=== PATIENT | female | born 1995 | race African-American/Black ===

== ENCOUNTER 2018-11-29 06:08 | Emergency (ER) | payer SELFPAY ==
[2018-11-29 06:37] LABS: #Eosinphils 0.1 thou/uL (0.0-0.7); #Lymphocytes 3.6 thou/uL (1.20-3.40); #Monocytes 0.9 thou/uL (0.11-0.59); #Neutrophils 3.6 thou/uL (1.40-6.50); %Basophils 0.5 % (0.0-1.0); %Eosinophils 0.7 % (0.0-10.0); %Lymphocytes 43.8 % (21.0-51.0); %Monocytes 11.3 % (0.0-10.0); %Neutrophils 43.6 % (42.0-75.0); Hemoglobin 11.3 g/dL (12.0-16.0); Mean Corpuscular HGB CONC 34.7 g/dL (32.0-36.0); Mean Corpuscular Hemoglobin 30.4 pg (27.0-31.0); Mean Corpuscular Volume 87.5 fL (78.0-98.0); Mean Platelet Volume 4.9 fL (7.4-10.4); Platelet Count 357 thou/uL (130-400); RBC Distribution Width 11.8 % (11.5-14.5); Red Blood Cell (RBC) Count 3.71 mill/uL (4.20-5.40); White Blood Cell (WBC) Count 8.1 thou/uL (4.8-10.8)
[2018-11-29 06:38] LABS: Bilirubin Small (Negative); Blood, Urine Negative (Negative); Clarity Slightly Cloudy (Clear); Glucose, Urine (Dipstick) Negative (Negative); Leukocyte Negative (Negative); Nitrite Negative (Negative); Protein, Urine (Dipstick) 30 mg/dL (Neg-Trace)
[2018-11-29 06:46] LABS: RBC/HPF 0-3 HPF (0-3); Squamous Epithelial 0-3 HPF (0-3); WBC/HPF None Seen HPF (0-3)
[2018-11-29 06:47] LABS: Bacteria/HPF Rare-Few HPF (None Seen); Mucous/LPF 4+ LPF (<2+)
[2018-11-29 06:51] LABS: ALT (SGPT) 26 U/L (8-55); AST (SGOT) 19 U/L (5-34); Albumin 4.2 g/dL (3.5-5.0); Alkaline Phosphatase 55 U/L (40-150); Anion Gap 12 mmol/L (10-20); BUN (Urea Nitrogen) 13 mg/dL (7.0-18.7); Calc. Creatinine Clearance 0 mL/min (70-130); Calcium 9.3 mg/dL (7.8-10.44); Carbon Dioxide 23 mmol/L (22-29); Chloride 104 mmol/L (98-107); Estimated GFR-MDRD 88; Globulin 3.8 g/dL (2.4-3.5); Glucose 79 mg/dL (70-105); Potassium 3.2 mmol/L (3.5-5.1); Sodium 136 mmol/L (136-145)
[2018-11-29 06:53] LABS: Bilirubin, Total 0.4 mg/dL (0.2-1.2)
--- NOTE | 2018-11-29 08:09 | ULT ---
PELVIC ULTRASOUND: INDICATIONS: Pelvic pain. Positive home test. TECHNIQUE: Transabdominal and endovaginal ultrasound of the pelvis performed. FINDINGS: The endometrium is echogenic and thickened. Tiny, circumscribed fluid structures in the endometrial cavity may represent a very small gestational sac. Measurement would indicate a gestational age of 5 weeks 0 days. No evidence of pole or yolk sac. The maternal ovaries are identified and appear unremarkable. Color Doppler with spectral analysis de monstrates blood flow to both ovaries. IMPRESSION: 1. Thickened echogenic endometrium. A tiny fluid-filled structure in the endometrial cavity may rep resent an early gestational sac, which would indicate a gestational age of 5 week 0 days. 2. Ectopic with pseudo gestational sac not excluded. Continued close followup recommended . POS: TERRIE
== END 2018-11-29 08:13 | disposition home or self-care (01) ==
LOC: SCSER 06:08
DX: O20.0 Threatened abortion (principal); O99.011 Anemia complicating pregnancy, first trimester; O99.89 Other specified diseases and conditions complicating pregnancy, childbirth and the puerperium; R10.30 Lower abdominal pain, unspecified; Z3A.01 Less than 8 weeks gestation of pregnancy
CPT/HCPCS: 36415; 76856; 80053; 81003; 81015; 84702; 85025

== ENCOUNTER 2019-01-12 21:57 | Emergency (ER) | payer OTHER, SELFPAY ==
[2019-01-12 22:29] LABS: #Eosinphils 0.1 thou/uL (0.0-0.7); #Neutrophils 6.4 thou/uL (1.40-6.50); %Basophils 0.4 % (0.0-1.0); %Eosinophils 0.7 % (0.0-10.0); %Lymphocytes 28.4 % (21.0-51.0); %Monocytes 9.8 % (0.0-10.0); %Neutrophils 60.6 % (42.0-75.0); Hemoglobin 11.6 g/dL (12.0-16.0); Mean Corpuscular HGB CONC 35.1 g/dL (32.0-36.0); Mean Corpuscular Hemoglobin 31.2 pg (27.0-31.0); Mean Corpuscular Volume 88.8 fL (78.0-98.0); Mean Platelet Volume 6.2 fL (7.4-10.4); Platelet Count 381 thou/uL (130-400); RBC Distribution Width 11.7 % (11.5-14.5); Red Blood Cell (RBC) Count 3.73 mill/uL (4.20-5.40); White Blood Cell (WBC) Count 10.5 thou/uL (4.8-10.8)
[2019-01-12 22:44] LABS: BHCG - Serum POSITIVE (NEGATIVE); Pregs Control Background? CLEAR/WHITE (CLR/WHITE); Pregs Control Bar Appear? YES (CONTROL BAR)
[2019-01-12 22:49] LABS: ALT (SGPT) 27 U/L (8-55); AST (SGOT) 19 U/L (5-34); Albumin 3.8 g/dL (3.5-5.0); Alkaline Phosphatase 66 U/L (40-110); Anion Gap 13 mmol/L (10-20); BUN (Urea Nitrogen) 8 mg/dL (7.0-18.7); Bilirubin, Total 0.3 mg/dL (0.2-1.2); Calc. Creatinine Clearance 0 mL/min (70-130); Calcium 9.8 mg/dL (7.8-10.44); Carbon Dioxide 21 mmol/L (22-29); Chloride 104 mmol/L (98-107); Estimated GFR-MDRD Greater than 90; Globulin 3.9 g/dL (2.4-3.5); Glucose 95 mg/dL (70-105); Potassium 3.5 mmol/L (3.5-5.1); Protein, Total 7.7 g/dL (6.0-8.3); Sodium 134 mmol/L (136-145)
[2019-01-12 23:17] LABS: Bilirubin Small (Negative); Blood, Urine Trace (Negative); Glucose, Urine (Dipstick) Negative (Negative); Leukocyte Moderate (Negative); Nitrite Negative (Negative); Protein, Urine (Dipstick) 30 mg/dL (Neg-Trace)
[2019-01-12 23:18] LABS: Clarity Turbid (Clear)
[2019-01-12 23:23] LABS: Bacteria/HPF 2+ HPF (None Seen); Squamous Epithelial 0-3 HPF (0-3); WBC/HPF 21-50 HPF (0-3)
--- NOTE | 2019-01-12 23:56 | ULT ---
US Pelvic transabdominal HISTORY: Pelvic pain. COMPARISON: None. FINDINGS: Real-time imaging of the pelvis was obtained transabdominally. This shows a single viable i ntrauterine . [place]-rump length measurements are 5.2 cm corresponding to 11 weeks 6 days. The heart rate is 165 bpm. No subchorionic bleed. The right and left adnexa are normal in appearance. Doppler evaluation with spectral analysis: Normal flow shown to the ovaries. IMPRESSION: Single viable intrauterine with crown to rump length measurements corresponding to 11 weeks 6 days with an estimated date of delivery of 07/28/2019
[2019-01-13] MEDS ORDERED: Azithromycin 250 MG TAB ONE (01:06)
[2019-01-13] MEDS ORDERED: Lidocaine 1% PF 5 ML VIAL ONE (01:06)
[2019-01-13] MEDS ORDERED: cefTRIAXone\\ROCEPHIN 1 GM VIAL ONE (01:06)
== END 2019-01-13 01:33 | disposition home or self-care (01) ==
LOC: ERS 21:57
DX: O23.41 Unspecified infection of urinary tract in pregnancy, first trimester (principal); O99.341 Other mental disorders complicating pregnancy, first trimester; F41.9 Anxiety disorder, unspecified; Z3A.12 12 weeks gestation of pregnancy
CPT/HCPCS: 36415; 76856; 80053; 81003; 81015; 84702; 84703; 85025; 86900; 86901; 87086; 87480; 87491; 87510; 87591; 87660; 96372; J0696; J2001

== ENCOUNTER 2019-04-26 19:55 | Day surgery (SDC) | payer OTHER ==
[2019-04-26 20:27] VITALS: BMI 28.3
[2019-04-26] MEDS ORDERED: hydrALAZINE 20 MG/ML VIAL SLOW IVP PRN (20:48)
[2019-04-26 22:21] LABS: #Basophils 0.1 thou/uL (0.0-0.2); #Eosinphils 0.1 thou/uL (0.0-0.7); #Lymphocytes 2.7 thou/uL (1.20-3.40); #Monocytes 0.8 thou/uL (0.11-0.59); #Neutrophils 4.8 thou/uL (1.40-6.50); %Basophils 0.6 % (0.0-1.0); %Eosinophils 1.3 % (0.0-10.0); %Lymphocytes 31.5 % (21.0-51.0); %Monocytes 9.5 % (0.0-10.0); %Neutrophils 57.1 % (42.0-75.0); Hemoglobin 11.5 g/dL (12.0-16.0); Mean Corpuscular HGB CONC 33.5 g/dL (32.0-36.0); Mean Corpuscular Hemoglobin 30.5 pg (27.0-31.0); Mean Platelet Volume 6.4 fL (7.4-10.4); Platelet Count 326 thou/uL (130-400); RBC Distribution Width 12.4 % (11.5-14.5); Red Blood Cell (RBC) Count 3.79 mill/uL (4.20-5.40); White Blood Cell (WBC) Count 8.5 thou/uL (4.8-10.8)
--- NOTE | 2019-04-26 22:53 | ULT ---
OB ULTRASOUND: 04/26/19 HISTORY: 24 week gestation. Patient is experiencing contractions. FINDINGS: There is a single intrauterine gestation in cephalic presentation. Cardiac Doppler demonstrates feta l heart tones with a heart rate of 157 beats per minute. The placenta is located posteriorly. E dge of the placenta in relation to the cervical os is not well appreciated on the provided images. Ho wever, no definite findings to suggest placenta previa are seen. There is a normal amount of amniotic fluid with an amniotic fluid index of 10.4 cm. The cervix measures 3.2 cm in length based on transab dominal imaging. measurements: Biparietal diameter 6.34 cm 25 weeks, 5 days Head circumference 24.37 cm 26 weeks, 3 days Abdominal circumference 21.1 cm 25 weeks, 4 days Femur length 4.96 cm 26 weeks, 5 days The gestational age by ultrasound is 26 weeks and 1 day with an JESSICA on 08/01/2019. Gestational age by the LMP is 26 weeks and 5 days. He estimated weight by ultrasound is 831 grams (1 lb. 15 oz). This represents the 17th percent ile for weight. anatomical structures were not evaluated on this exam. IMPRESSION: 1. Placenta is located posteriorly. The exact location of the edge of the placenta in relation t o the cervical os is not well delineated on the provided sonographic images. 2. Single intrauterine gestation in cephalic presentation with heart tones documented. 3. Normal amount of amniotic fluid with an amniotic fluid index measuring 10.4 cm. 4. Gestational age by ultrasound is 26 weeks and 1 day with an JESSICA on 08/01/2019. 5. Estimated weight is 891 grams (1 lb. 15 oz). POS: TERRIE
[2019-04-26 22:55] LABS: Bacteria/HPF None Seen HPF (None Seen); Bilirubin Negative (Negative); Blood, Urine Negative (Negative); Clarity Turbid (Clear); Glucose, Urine (Dipstick) Normal (Negative); Leukocyte Negative Leu/uL (Negative); Mucous/LPF Rare LPF (<2+); Nitrite Negative (Negative); Protein, Urine (Dipstick) Negative (Neg-Trace); RBC/HPF 0-3 HPF (0-3); Squamous Epithelial 0-3 HPF (0-3); Urobilinogen Normal mg/dL (Less than 2); WBC/HPF 0-3 HPF (0-3)
[2019-04-26 22:56] LABS: Urine Culture Reflex No No
--- NOTE | 2019-04-26 23:58 | PRG ---
DATE OF SERVICE: 04/26/2019 TIME OF SERVICE: 2300 hours. PRESENTING COMPLAINT: Vaginal spotting earlier in day with cramping at 26 weeks' gestation. HISTORY OF PRESENT ILLNESS: Ms. Mcclelland is a G2, P1 with EDC of 06/13. She reports that she had gonorrhea in March. She was treated for this. She reports that she had some spotting earlier today. No sexual activities and occasional cramps. She denies leakage of fluid. [employer] HISTORY: Term in the past, uncomplicated except for positive GC. 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 PAST MEDICAL HISTORY: None. PAST SURGICAL HISTORY: Denies. ALLERGIES: DENIES. MEDICATIONS: vitamins. SOCIAL HISTORY: Denies tobacco, alcohol, or drug use. FAMILY HISTORY: Noncontributory. REVIEW OF SYSTEMS: Noncontributory. PHYSICAL EXAMINATION: GENERAL: Black female in no acute distress. VITAL SIGNS: Temperature 98.5, respirations 18, pulse 85, and blood pressure 118/72. HEENT: Within normal limits. LUNGS: Clear to auscultation bilaterally. HEART: Regular rate and rhythm. ABDOMEN: Soft and nontender without rebound or guarding. No palpable contractions noted. FHTs 150s. Vulva without lesions. Vagina, discharge. Speculum exam reveals the cervix is closed, long, and high. EXTREMITIES: No clubbing, cyanosis, or edema. LABORATORY STUDIES: Ultrasound was performed, which revealed a posterior placenta, size equal to dates baby, cephalic presentation. Cervical length greater than 3 cm. No funneling. No other abnormalities noted. Fem cath UA was performed, which revealed turbid urine, but was otherwise unremarkable without evidence of ketones, leukocyte esterase, or infection. IMPRESSION: Discomforts of . No evidence of acute urinary tract infection or labor. PLAN: Discharge home. Reassurance. Keep scheduled followup with Ricarda Hampton. Job ID: [id number]
[2019-04-27] MEDS ORDERED: FLU VACC QS2019-20(6MOS UP)/PF 60 MCG/0.5 ML SYRINGE IM ONE (21:00)
== END 2019-04-26 23:20 | disposition home or self-care (01) ==
LOC: L&D/OP 19:55
PROVIDERS: ATTEND Advanced Practice Midwife
DX: O26.852 Spotting complicating pregnancy, second trimester (principal); O99.820 Streptococcus B carrier state complicating pregnancy; Z3A.26 26 weeks gestation of pregnancy
CPT/HCPCS: 36415; 76805; 81001; 85025

== ENCOUNTER 2019-06-11 06:34 | Day surgery (SDC) | payer OTHER ==
[2019-06-11 07:09] VITALS: BP 112/62; TEMP 98.6; BMI 30.9
[2019-06-11] MEDS ORDERED: hydrALAZINE 20 MG/ML VIAL SLOW IVP PRN (07:28)
--- NOTE | 2019-06-11 07:32 | PDOC.LDHP ---
Labor and Delivery H&P Chief complaint: other (LUQ pain x1) HPI: 23 yo at 33 weeks 2 days with left upper quadrant pain now better. No CTX, no VB, no LOF, good FM, no recent trauma. Review of Systems: complete ROS performed and negative as per HPI Current gestational age (weeks): 33 (2 days) Dating criteria: last menstrual period Grav: 2 Para: 1 OB History Details: Current complications: none Abnormal US findings: No Past Medical History: HX parior panic attacks resolved without med Current medications: pre-amos vitamins Previous surgical history: none Allergies/Adverse Reactions: Allergies Allergy/AdvReac Type Severity Reaction Status Date / Time No Known Allergies Allergy Verified 06/11/19 07:09 - Physical Exam Vital signs reviewed and normal: yes (112/62) General: NAD Heart: RRR Lungs: CTAB Abdomen: gravid FHT: category 1 [place] contractions every: none - Assessment 33 weeks with likely discomforts of . Do not suspect PTL so sx not checked. Check CMP to be conservative - Plan Plan: observation in L&D, other (Check CMP to be conservative)
[2019-06-11 08:10] LABS: ALT (SGPT) 37 U/L (8-55); AST (SGOT) 22 U/L (5-34); Albumin 3.5 g/dL (3.5-5.0); Alkaline Phosphatase 118 U/L (40-110); Anion Gap 12 mmol/L (10-20); BUN (Urea Nitrogen) 7 mg/dL (7.0-18.7); Bilirubin, Total 0.4 mg/dL (0.2-1.2); Calc. Creatinine Clearance 200 mL/min (70-130); Calcium 9.5 mg/dL (7.8-10.44); Carbon Dioxide 20 mmol/L (22-29); Chloride 106 mmol/L (98-107); Estimated GFR-MDRD Greater than 90; Globulin 3.7 g/dL (2.4-3.5); Glucose 94 mg/dL (70-105); Potassium 3.4 mmol/L (3.5-5.1); Protein, Total 7.2 g/dL (6.0-8.3); Sodium 135 mmol/L (136-145)
== END 2019-06-11 08:25 | disposition home or self-care (01) ==
LOC: L&D/OP 06:34
PROVIDERS: ATTEND Obstetrics & Gynecology
DX: O99.89 Other specified diseases and conditions complicating pregnancy, childbirth and the puerperium (principal); R10.12 Left upper quadrant pain; Z3A.33 33 weeks gestation of pregnancy
CPT/HCPCS: 36415; 80053; 99282

== ENCOUNTER 2019-08-02 05:30 | Inpatient (IN) | payer OTHER ==
[2019-08-02 07:16] VITALS: BMI 32.4
[2019-08-02] MEDS: Lactated Ringer's 1,000 ML IV SCH ×3 (07:20→21:33)
[2019-08-02] MEDS ORDERED: NS w/ Oxytocin 10 units 500 ML ONE (07:20)
[2019-08-02] MEDS ORDERED: HYDROcodone/Acetaminophen 5/325 mg Tablet PO PRN ×3 (08:14→19:47)
[2019-08-02] MEDS ORDERED: Ondansetron PF 4 MG/2 ML Vial IVP PRN ×3 (08:14→16:26)
[2019-08-02] MEDS ORDERED: Butorphanol Tartrate 1 MG/ML VIAL SLOW IVP PRN (08:14)
[2019-08-02] MEDS ORDERED: NS / Oxytocin 40 units/1000ml 1,000 ML IV PRN (08:14)
[2019-08-02] MEDS ORDERED: Methylergonovine 0.2 MG/ML VIAL IM PRN ×2 (08:14→19:47)
[2019-08-02] MEDS ORDERED: Promethazine HCl 25 MG/ML VIAL IM PRN ×3 (08:14→16:26)
[2019-08-02] MEDS ORDERED: Misoprostol 200 MCG TAB PR PRN ×2 (08:14→19:47)
[2019-08-02] MEDS ORDERED: Lidocaine 1% (PF) 30 ML VIAL SC PRN (08:14)
[2019-08-02] MEDS ORDERED: hydrALAZINE 20 MG/ML VIAL SLOW IVP PRN ×2 (08:14→19:47)
[2019-08-02] MEDS ORDERED: Ibuprofen 800 MG TAB PO PRN (08:14)
[2019-08-02 08:49] LABS: Hemoglobin 13.2 g/dL (12.0-16.0); Mean Corpuscular HGB CONC 31.7 g/dL (32.0-36.0); Mean Corpuscular Hemoglobin 28.9 pg (27.0-31.0); Platelet Count 359 thou/uL (130-400); RBC Distribution Width 12.6 % (11.5-14.5); Red Blood Cell (RBC) Count 4.59 mill/uL (4.20-5.40); White Blood Cell (WBC) Count 9.2 thou/uL (4.8-10.8)
[2019-08-02] MEDS ORDERED: Bupivacaine/Epinephrine 0.25% 30 ML VIAL ONE (08:52)
[2019-08-02] MEDS ORDERED: Fentanyl 4 mcg/Bup 0.1% Cadd 100 ML ONE (09:12)
[2019-08-02 09:16] LABS: HBSAg Index 0.17 S/CO (0-0.99); Hep B Surf Ag Non-Reactive S/CO (NonReactive); Syphilis Antibody Nonreactive (Nonreactive); Syphilis Antibody Index 0.09 S/CO (<1.00 Non-Reactive)
[2019-08-02] MEDS ORDERED: EPHEDRINE 25 MG/5 ML SYRINGE SLOW IVP PRN (10:11)
[2019-08-02] MEDS ORDERED: Naloxone HCl 0.4 mg/ml Vial IVP PRN ×4 (10:11→16:26)
[2019-08-02] MEDS ORDERED: Acetaminophen 325 MG TAB PO PRN (10:11)
[2019-08-02] MEDS ORDERED: Lactated Ringer's 500 ML IV PRN (10:11)
[2019-08-02] MEDS ORDERED: diphenhydrAMINE 50 MG/ML VIAL IVP PRN ×2 (10:11→16:26)
[2019-08-02] MEDS ORDERED: Fentanyl 4 mcg/Bupivacaine 0.1% Cassette 100 ML EPIDURAL SCH (10:15)
[2019-08-02] MEDS ORDERED: Communication Order-Pharmacy FS SCH ×2 (10:15→16:30)
--- NOTE | 2019-08-02 13:19 | PDOC.LDHP ---
Labor and Delivery H&P Chief complaint: scheduled induction HPI: Patient is post dates by 5 days and desires an elective induction Current gestational age (weeks): 40 (5 days) Due date: 07/28/19 Dating criteria: first trimester ultrasound (at [id number]) Grav: 2 Para: 1 OB History Details: in 2014. Uncomplicated at 39 weeks. Current complications: other Current medications: pre-amos vitamins Allergies/Adverse Reactions: Allergies Allergy/AdvReac Type Severity Reaction Status Date / Time No Known Allergies Allergy Verified 08/02/19 07:13 - Physical Exam Vital signs reviewed and normal: yes General: resting Lungs: nonlabored breathing Abdomen: gravid FHT: category 2 (minimal variability. One prolonged decel on admission.) - Vaginal Exam cm dilated: 4 Effacement: 50% Station: -3 - OB Labs Blood type: O RH: positive Antibody Screen: negative HIV: negative RPR: negative HEPSAg: negative 1 hour GCT: negative GBS: negative Urine drug screen: negative Rubella: immune - Assessment L&D Assessment: elective induction at term - Plan Plan: admit to L&D, informed consent obtained -: pitocin for induction
[2019-08-02] MEDS ORDERED: Azithromycin 500 MG VIAL ONE (15:38)
[2019-08-02] MEDS ORDERED: Lidocaine 2% 10 ML INJ ONE (15:40)
[2019-08-02] MEDS ORDERED: EPINEPHrine 1 MG/ML AMP ONE (15:40)
[2019-08-02] MEDS ORDERED: CEFAZOLIN 2 GM in Premix Bag 1 BAG IVPB SCH (15:45)
[2019-08-02] MEDS ORDERED: Bicitra 30 ML UDCUP PO SCH (15:45)
[2019-08-02] MEDS ORDERED: Azithromycin 500 MG in Sodium Chloride 0.9% 250 ML 250 ML IVPB SCH (15:45)
[2019-08-02] MEDS ORDERED: MORPHINE 5 MG/10 ML PF VIAL ONE (16:03)
[2019-08-02] MEDS ORDERED: Oxytocin 10 UNITS/ML VIAL ONE ×2 (16:03→16:23)
[2019-08-02] MEDS ORDERED: Ondansetron PF 4 MG/2 ML Vial ONE (16:03)
[2019-08-02] MEDS ORDERED: Fentanyl 100 MCG/2 ML VIAL ONE (16:03)
--- NOTE | 2019-08-02 16:21 | PDOC.OPDEL ---
OB Operative/Delivery Note Delivery Dr/Surgeon: Adam Assist: Light Pre-Delivery Diagnosis: non-reassuring tracing Procedure/Post Delivery Dx: primary low transverse CS Weeks gestation: 40 Anesthesia: epidural - Findings A Sex: female - 1 min: 8 - 5 min: 9 - Additional Findings/Plan Placenta delivered: spontaneous findings: low transverse hysterotomy without extension, normal uterus, normal tubes, normal ovaries Estimated blood loss: qbl pending Post delivery plan: routine recovery
[2019-08-02] MEDS ORDERED: Promethazine HCl 25 MG SUPP PR PRN (16:26)
[2019-08-02] MEDS ORDERED: Ondansetron HCl/PF 4 MG/2 ML Vial IVP PRN (16:26)
[2019-08-02] MEDS ORDERED: Naloxone HCl 0.4 mg/ml Vial IV PRN (16:26)
[2019-08-02 16:30] LABS: Actual Bicarbonate (HCO3v) 23 mEq/L (22-28); Base Excess -3.9 mEq/L (-2.0 to +3.0); pH (Cord, venous) 7.31 (7.32-7.43)
[2019-08-02] MEDS: Acetaminophen 650 MG Suppository PR SCH (18:23)
[2019-08-02] MEDS ORDERED: Ketorolac Tromethamine 30 MG/ML VIAL ONE (18:24)
[2019-08-02] MEDS: Ketorolac Tromethamine 30 MG/ML VIAL IVP PRN (18:25)
[2019-08-02] MEDS ORDERED: Lanolin Ointment 7 GM TUBE TOP PRN (19:47)
[2019-08-02] MEDS ORDERED: Simethicone Chewable 80 MG TAB PO PRN (19:47)
[2019-08-02] MEDS ORDERED: NS / Oxytocin 40 units/1000ml 1,000 ML IV SCH (19:47)
--- NOTE | 2019-08-02 20:21 | OP ---
DATE OF PROCEDURE: 08/02/2019 PREOPERATIVE DIAGNOSIS: G2, P1, at 40 weeks and 5 days with non-reassuring heart tracing, remote from delivery. POSTOPERATIVE DIAGNOSIS: G2, P1, at 40 weeks and 5 days with non-reassuring heart tracing, remote from delivery. PROCEDURE PERFORMED: Primary low-transverse section. ASSIST: Ricarda Hampton, JAYNA, DIRECTOR OF APPLICATION DEVELOPMENT. ANESTHESIA: Epidural. ANESTHESIOLOGIST: Sandrine Ram MD. COMPLICATIONS: None. QUANTITATIVE BLOOD LOSS: Pending at the time of dictation. OPERATIVE FINDINGS: 1. Vigorous female , Apgars 8 and 9. Weight pending at the time of dictation to nursery. 2. Normal-appearing placenta with 3-vessel cord. 3. Low-transverse hysterotomy without extension. 4. Fundus firm after delivery of the placenta. 5. Surgical site hemostatic. INDICATIONS FOR DELIVERY: Ms. Fausto Mcclelland is a G2, P1-0-0-1, who was undergoing induction of labor for prolonged at 40 weeks and 5 days with intolerance to labor demonstrated by recurrent late decelerations and minimal variability. I was called by Ricarda Hampton who was managing the patient's labor course for evaluation and for section. The patient was informed of the indications for delivery and consented to a section. DESCRIPTION OF PROCEDURE: The patient was taken back to the OR with IV fluids running. Once she was in the OR, she was placed in dorsal supine position with a Wise catheter and epidural catheter that was previously placed. The patient was placed in a dorsal lithotomy with a left lateral tilt. The abdomen was prepped and draped in normal fashion for section and the surgeons were gowned and gloved. The preop antibiotics included azithromycin and Ancef 2 g. The patient was prepped and draped in normal fashion for section and the surgeons were gowned and gloved. Anesthesia was tested and found to be adequate. A Pfannenstiel skin incision was made with a scalpel. Skin incision was carried down through the subcutaneous tissue to the fascia. Once the fascia was reached, it was incised in the midline and extended superolaterally using curved Frazier scissors. Kristen clamps were placed at the superior border of the fascia, which was sharply and bluntly dissected off the rectus abdominis muscles in a cephalad direction. In similar fashion, they were placed at the inferior border of the fascia, which was dissected down towards the level of the pubic symphysis. The rectus muscles and peritoneum were bluntly entered and stretched laterally. An Santos O retractor was placed into the peritoneal cavity for retraction, visualization, and protection of the wound. A low-transverse hysterotomy was made with a scalpel. The uterus was bluntly entered and stretched using a Bunn maneuver. The infant was delivered vertex through the incision followed by the shoulders and body. The nose and mouth were suctioned. The cord was doubly clamped and cut. The infant was handed off to special care nurses in attendance. Cord blood and cord segment for cord gas were collected. The placenta was delivered. The uterus was massaged to firm and cleared of clot and debris with a clean dry sponge. The hysterotomy was inspected and no extension was noted. Hysterotomy was closed in a running locked fashion with Monocryl suture. After the hysterotomy was closed and noted to be hemostatic, it was copiously irrigated and suctioned dry. The hysterotomy was again inspected and no areas of bleeding were noted. The Santos O retractor was removed from the abdominal cavity. The rectus muscles and fascia were inspected and no bleeding was noted. The rectus fascia was reapproximated in a running fashion with PDS suture from corner to corner. After the rectus fascia was reapproximated, the subcutaneous layer was irrigated and dried. Any small areas of bleeding were controlled with Bovie cauterization. Plain gut suture was used to reapproximate the subcutaneous layer and 4-0 Monocryl was used to close the skin with a subcuticular closure. Dermabond dressing was used to protect the incision, and a sterile dressing was placed at the end of the procedure. The patient tolerated the procedure well and there were no complications. Job ID: [id number]
[2019-08-02] MEDS: Ferrous Sulfate 325 MG TAB PO SCH (21:28)
[2019-08-03] MEDS: Acetaminophen 650 MG Suppository PR SCH ×2 (01:55→06:35)
[2019-08-03 06:39] LABS: #Lymphocytes 1.8 thou/uL (1.20-3.40); #Monocytes 1.2 thou/uL (0.11-0.59); #Neutrophils 14.1 thou/uL (1.40-6.50); %Basophils 0.1 % (0.0-1.0); %Eosinophils 0.2 % (0.0-10.0); %Lymphocytes 10.7 % (21.0-51.0); %Monocytes 7.1 % (0.0-10.0); Hemoglobin 11.3 g/dL (12.0-16.0); Mean Corpuscular HGB CONC 34.2 g/dL (32.0-36.0); Mean Corpuscular Hemoglobin 31.1 pg (27.0-31.0); Mean Platelet Volume 6.7 fL (7.4-10.4); Platelet Count 284 thou/uL (130-400); RBC Distribution Width 12.2 % (11.5-14.5); Red Blood Cell (RBC) Count 3.62 mill/uL (4.20-5.40); White Blood Cell (WBC) Count 17.2 thou/uL (4.8-10.8)
[2019-08-03] MEDS ORDERED: Sodium Chloride 0.9% 10 ML ONE ×2 (06:48→21:55)
[2019-08-03] MEDS: Ketorolac Tromethamine 30 MG/ML VIAL IVP PRN (06:49)
[2019-08-03] MEDS ORDERED: Adacel (T-DAP) 0.5 ML SYRINGE IM ONE (09:00)
[2019-08-03] MEDS: Ferrous Sulfate 325 MG TAB PO SCH ×2 (09:02→22:07)
[2019-08-03] MEDS: Prenatal Vitamin 1 TAB PO SCH (09:03)
[2019-08-03] MEDS: HYDROcodone/Acetaminophen 5/325 mg Tablet PO PRN ×2 (13:00→19:37)
[2019-08-03] MEDS: Ibuprofen 800 MG TAB PO SCH ×2 (13:01→22:06)
--- NOTE | 2019-08-03 13:34 | PDOC.PP ---
Post Progress Note Post Day #: 1 Subjective: Patine doing well. her stomach hurts. Has not been up out of bed. PO intake tolerated: yes Flatus: yes Ambulation: yes Vital Signs (12 hours) Temp Pulse Resp BP Pulse Ox 08/03/19 11:45 98.4 F 94 20 105/62 08/03/19 07:46 98.4 F 100 20 104/57 L 95 08/03/19 06:33 98.3 F 08/03/19 04:55 99.0 F 108 H 20 113/61 96 Weight Weight 183 lb - Physical Examination General: NAD Respiratory: non-labored breathing Abdominal: lochia, no distention Skin: CS incision dry & intact Neurological: no gross focal deficits Psychiatric: A&Ox3, normal affect Result Diagrams: 08/03/19 06:22 Additional Labs: Post Labs Blood Type O POSITIVE 08/02/19 08:25 Hep Bs Antigen Non-Reactive S/CO (NonReactive) 08/02/19 08:25 (1) S/P primary low transverse Code(s): Z98.891 - HISTORY OF UTERINE SCAR FROM PREVIOUS SURGERY Status: Acute - Assessment/Plan A: G2 now P2 /sp PCS for non-reassuring FHTs. with NML ppd #1 exam. P: routine care possible discharge home tomorrow
[2019-08-04] MEDS: HYDROcodone/Acetaminophen 5/325 mg Tablet PO PRN (03:40)
[2019-08-04] MEDS: Ibuprofen 800 MG TAB PO SCH ×2 (05:28→13:41)
[2019-08-04] MEDS: Ferrous Sulfate 325 MG TAB PO SCH (07:02)
--- NOTE | 2019-08-04 07:36 | PDOC.PP ---
Post Progress Note Post Day #: 2 Subjective: Doing well this morning, would like to go home. PO intake tolerated: yes Flatus: yes Ambulation: yes Vital Signs (12 hours) Temp Pulse Resp BP Pulse Ox 08/04/19 04:05 97.6 F 80 18 107/58 L 97 08/04/19 00:05 97.8 F 80 18 109/54 L 98 Weight Weight 183 lb - Physical Examination General: NAD Respiratory: non-labored breathing Abdominal: lochia (normal), no distention, appropriately TTP Fundus firm & at: umbilicus Skin: CS incision dry & intact, no rash Neurological: no gross focal deficits Psychiatric: A&Ox3, normal affect Result Diagrams: 08/03/19 06:22 Additional Labs: Post Labs Blood Type O POSITIVE 08/02/19 08:25 Hep Bs Antigen Non-Reactive S/CO (NonReactive) 08/02/19 08:25 (1) S/P primary low transverse Code(s): Z98.891 - HISTORY OF UTERINE SCAR FROM PREVIOUS SURGERY Status: Acute - Assessment/Plan D/c home later today. Meds called out by Balbina Hampton.
[2019-08-04] MEDS: Prenatal Vitamin 1 TAB PO SCH (08:40)
[2019-08-04 08:43] VITALS: BP 110/59; TEMP 98.4
== END 2019-08-04 14:33 | disposition home or self-care (01) | DRG 788 ==
LOC: L&D 06:04 → 3SE 19:38
PROVIDERS: ADMIT Obstetrics & Gynecology; ATTEND Obstetrics & Gynecology
PROC: 10D00Z1 Extraction of Products of Conception, Low, Open Approach (ICD-10-PCS; principal; 2019-08-02)
DX: O76 Abnormality in fetal heart rate and rhythm complicating labor and delivery (principal); O48.0 Post-term pregnancy; Z3A.40 40 weeks gestation of pregnancy; Z37.0 Single live birth
CPT/HCPCS: 36415; 51702; 82805; 85025; 85027; 86780; 86850; 86900; 86901; 87340; J0171; J0456; J0690; J1200; J1885; J2001; J2274; J2405; J2590; J3010

== ENCOUNTER 2019-10-09 16:22 | Emergency (ER) | payer OTHER ==
[2019-10-10 14:09] LABS: SARS-CoV-2 MS2 Positive; SARS-CoV-2 N Gene Negative; SARS-CoV-2 S Gene Negative; SARS-CoV-2 orf1ab Negative
== END 2019-10-09 16:50 | disposition home or self-care (01) ==
LOC: ERS 16:22
DX: R50.9 Fever, unspecified (principal); R51 Headache; M79.10 Myalgia, unspecified site; Z20.828 Contact with and (suspected) exposure to other viral communicable diseases; F41.9 Anxiety disorder, unspecified
CPT/HCPCS: 87635; 99283; U0003

== ENCOUNTER 2019-12-16 03:01 | Emergency (ER) | payer OTHER ==
[2019-12-16 03:45] LABS: #Basophils 0.1 thou/uL (0.0-0.2); #Lymphocytes 2.9 thou/uL (1.20-3.40); #Monocytes 0.6 thou/uL (0.11-0.59); #Neutrophils 5.6 thou/uL (1.40-6.50); %Eosinophils 0.4 % (0.0-10.0); %Monocytes 6.7 % (0.0-10.0); %Neutrophils 60.8 % (42.0-75.0); Hemoglobin 12.6 g/dL (12.0-16.0); Mean Corpuscular HGB CONC 32.6 g/dL (32.0-36.0); Mean Corpuscular Hemoglobin 29.3 pg (27.0-31.0); Mean Platelet Volume 6.5 fL (7.4-10.4); Platelet Count 422 thou/uL (130-400); Red Blood Cell (RBC) Count 4.31 mill/uL (4.20-5.40); White Blood Cell (WBC) Count 9.2 thou/uL (4.8-10.8)
[2019-12-16 04:03] LABS: Bacteria/HPF None Seen HPF (None Seen); Bilirubin Negative (Negative); Blood, Urine Negative (Negative); Clarity Turbid (Clear); Glucose, Urine (Dipstick) Normal (Negative); Ketone, Urine Negative (Negative); Leukocyte 500 Leu/uL (Negative); Nitrite Negative (Negative); Protein, Urine (Dipstick) 20 mg/dL (Neg-Trace); Specific Gravity, Urine 1.028 (1.002-1.036); Urobilinogen Normal mg/dL (Less than 2); WBC/HPF Greater than 50 HPF (0-3); pH, Urine 7.5 (5.0-9.0)
[2019-12-16 04:03] LABS: ALT (SGPT) 20 U/L (8-55); AST (SGOT) 20 U/L (5-34); Albumin 4.6 g/dL (3.5-5.0); Alkaline Phosphatase 72 U/L (40-110); Anion Gap 13 mmol/L (10-20); BUN (Urea Nitrogen) 11 mg/dL (7.0-18.7); Bilirubin, Total 0.3 mg/dL (0.2-1.2); Calc. Creatinine Clearance 0 mL/min (70-130); Calcium 9.7 mg/dL (7.8-10.44); Carbon Dioxide 24 mmol/L (22-29); Chloride 106 mmol/L (98-107); Estimated GFR-MDRD Greater than 90; Globulin 3.9 g/dL (2.4-3.5); Glucose 94 mg/dL (70-105); Potassium 4.2 mmol/L (3.5-5.1); Protein, Total 8.5 g/dL (6.0-8.3); Sodium 139 mmol/L (136-145)
[2019-12-16 04:25] LABS: Pregnancy Test - Urine (BHCG) Negative (Negative); Pregu Control Background? CLEAR/WHITE (CLR/WHITE); Pregu Control Bar Appear? YES (CONTROL BAR); Specific Gravity 1.028 (1.002-1.036)
[2019-12-16] MEDS ORDERED: cefTRIAXone\\ROCEPHIN 1 GM VIAL ONE (04:40)
[2019-12-16] MEDS ORDERED: Ondansetron ODT 4 MG TAB ONE (04:40)
[2019-12-16] MEDS ORDERED: Ketorolac Tromethamine 30 MG/ML VIAL ONE (04:40)
== END 2019-12-16 05:16 | disposition home or self-care (01) ==
LOC: ERS 03:01
DX: N12 Tubulo-interstitial nephritis, not specified as acute or chronic (principal); R11.0 Nausea; F41.9 Anxiety disorder, unspecified
CPT/HCPCS: 36415; 80053; 81003; 81015; 81025; 85025; 87086; 96372; 99284; J0696; J1885; Q0162

== ENCOUNTER 2020-04-12 21:36 | Emergency (ER) | payer OTHER ==
[2020-04-13 02:13] LABS: SARS-CoV-2 MS2 Positive; SARS-CoV-2 N Gene Negative; SARS-CoV-2 S Gene Negative; SARS-CoV-2 by NAA Not Detected (NotDetected); SARS-CoV-2 orf1ab Negative
== END 2020-04-12 23:24 | disposition home or self-care (01) ==
LOC: ERS 21:36
DX: J02.9 Acute pharyngitis, unspecified (principal); Z20.828 Contact with and (suspected) exposure to other viral communicable diseases
CPT/HCPCS: 87081; 87430; 87635; 99283; U0003

== ENCOUNTER 2020-06-08 11:33 | Emergency (ER) | payer OTHER ==
[2020-06-08 13:07] LABS: Bilirubin Negative (Negative); Clarity Cloudy (Clear); Glucose, Urine (Dipstick) Negative (Negative); Ketone, Urine Trace mg/dL (Negative); Leukocyte Trace (Negative); Nitrite Positive (Negative); Protein, Urine (Dipstick) > or equal to 300 mg/dL (Neg-Trace); Specific Gravity, Urine 1.025 (1.005-1.030); pH, Urine 7.5 (5.0-9.0)
[2020-06-08 13:09] LABS: Blood, Urine Large (Negative); RBC/HPF Greater than 50 HPF (0-3); WBC/HPF 0-3 HPF (0-3)
[2020-06-08 13:11] LABS: Trichomonas/HPF 1+ HPF (None Seen)
[2020-06-08 13:42] LABS: Pregnancy Test - Urine (BHCG) POSITIVE (Negative); Pregu Control Background? CLEAR/WHITE (CLR/WHITE); Pregu Control Bar Appear? YES (CONTROL BAR); Specific Gravity 1.025 (1.002-1.036)
[2020-06-08 13:45] LABS: #Basophils 0.1 thou/uL (0.0-0.2); #Eosinphils 0.2 thou/uL (0.0-0.7); #Lymphocytes 3.1 thou/uL (1.20-3.40); #Monocytes 0.9 thou/uL (0.11-0.59); #Neutrophils 3.2 thou/uL (1.40-6.50); %Basophils 0.8 % (0.0-1.0); %Eosinophils 2.4 % (0.0-10.0); %Monocytes 12.2 % (0.0-10.0); %Neutrophils 42.6 % (42.0-75.0); Hemoglobin 11.6 g/dL (12.0-16.0); Mean Corpuscular HGB CONC 33.8 g/dL (32.0-36.0); Mean Corpuscular Hemoglobin 30.6 pg (27.0-31.0); Mean Corpuscular Volume 90.7 fL (78.0-98.0); Mean Platelet Volume 6.1 fL (7.4-10.4); Platelet Count 401 thou/uL (130-400); RBC Distribution Width 10.9 % (11.5-14.5); Red Blood Cell (RBC) Count 3.79 mill/uL (4.20-5.40); White Blood Cell (WBC) Count 7.4 thou/uL (4.8-10.8)
[2020-06-08 14:01] LABS: BHCG - Serum POSITIVE (NEGATIVE); Pregs Control Background? CLEAR/WHITE (CLR/WHITE); Pregs Control Bar Appear? YES (CONTROL BAR)
[2020-06-08 14:08] LABS: ALT (SGPT) 20 U/L (8-55); AST (SGOT) 19 U/L (5-34); Albumin 3.9 g/dL (3.5-5.0); Alkaline Phosphatase 55 U/L (40-110); Anion Gap 12 mmol/L (10-20); BUN (Urea Nitrogen) 10 mg/dL (7.0-18.7); Bilirubin, Total 0.4 mg/dL (0.2-1.2); Calc. Creatinine Clearance 0 mL/min (70-130); Calcium 9.3 mg/dL (7.8-10.44); Carbon Dioxide 24 mmol/L (22-29); Chloride 106 mmol/L (98-107); Globulin 3.6 g/dL (2.4-3.5); Glucose 85 mg/dL (70-105); Protein, Total 7.5 g/dL (6.0-8.3); Sodium 138 mmol/L (136-145)
--- NOTE | 2020-06-08 16:04 | ULT ---
PELVIC ULTRASOUND: History: Positive test. Pelvic pain. FINDINGS: Real-time imaging of the pelvis was obtained transabdominally as well as with an endovaginal probe. T his shows a uterus measuring 10 cm in length. Endometrium is thickened measuring 1.4 cm. No intrauter ine gestational sac. The right ovary is well visualized and normal in appearance. Left ovary is also unremarkable. COLOR DOPPLER EVALUATION WITH SPECTRAL ANALYSIS: Normal flow shown to both adnexa. IMPRESSION: Thickened endometrium. No signs of intrauterine or ectopic at this time. An early is not excluded. Correlation with Beta HCGs recommended and follow up as clinically indicated. POS: OFF
== END 2020-06-08 15:40 | disposition home or self-care (01) ==
LOC: ERS 11:33
DX: O03.4 Incomplete spontaneous abortion without complication (principal); A59.01 Trichomonal vulvovaginitis
CPT/HCPCS: 36415; 76856; 80053; 81003; 81015; 81025; 84702; 84703; 85025; 86900; 86901

== ENCOUNTER 2020-07-15 07:51 | Emergency (ER) | payer OTHER ==
[2020-07-15] MEDS ORDERED: Ondansetron PF 4 MG/2 ML Vial ONE (08:14)
[2020-07-15] MEDS ORDERED: Lidocaine Viscous Sol 2% 15 ml UD Cup ONE (08:20)
[2020-07-15] MEDS ORDERED: Mag-Al 1200 mg/1200 mg/30 ML UDCUP ONE (08:20)
[2020-07-15 08:33] LABS: #Basophils 0.1 thou/uL (0.0-0.2); #Lymphocytes 2.6 thou/uL (1.20-3.40); #Monocytes 0.7 thou/uL (0.11-0.59); #Neutrophils 5.1 thou/uL (1.40-6.50); %Basophils 0.6 % (0.0-1.0); %Eosinophils 0.5 % (0.0-10.0); %Lymphocytes 30.8 % (21.0-51.0); %Monocytes 7.7 % (0.0-10.0); %Neutrophils 60.3 % (42.0-75.0); Hemoglobin 12.2 g/dL (12.0-16.0); Mean Corpuscular HGB CONC 33.7 g/dL (32.0-36.0); Mean Corpuscular Hemoglobin 30.5 pg (27.0-31.0); Mean Corpuscular Volume 90.7 fL (78.0-98.0); Mean Platelet Volume 6.3 fL (7.4-10.4); Platelet Count 441 thou/uL (130-400); Red Blood Cell (RBC) Count 4.01 mill/uL (4.20-5.40); White Blood Cell (WBC) Count 8.5 thou/uL (4.8-10.8)
[2020-07-15 08:40] LABS: Bacteria/HPF 2+ HPF (None Seen); Bilirubin Negative (Negative); Blood, Urine 1+ (Negative); Clarity Clear (Clear); Glucose, Urine (Dipstick) Normal (Negative); Ketone, Urine Negative (Negative); Leukocyte 25 Leu/uL (Negative); Nitrite Negative (Negative); Protein, Urine (Dipstick) Negative (Neg-Trace); RBC/HPF 0-3 HPF (0-3); Specific Gravity, Urine 1.017 (1.002-1.036); Urobilinogen Normal mg/dL (Less than 2)
[2020-07-15 08:41] LABS: Pregnancy Test - Urine (BHCG) Negative (Negative); Pregu Control Background? CLEAR/WHITE (CLR/WHITE); Pregu Control Bar Appear? YES (CONTROL BAR); Specific Gravity 1.017 (1.002-1.036)
[2020-07-15 08:57] LABS: ALT (SGPT) 161 U/L (8-55); AST (SGOT) 251 U/L (5-34); Albumin 4.1 g/dL (3.5-5.0); Alkaline Phosphatase 79 U/L (40-110); Anion Gap 11 mmol/L (10-20); BUN (Urea Nitrogen) 9 mg/dL (7.0-18.7); Bilirubin, Total 0.3 mg/dL (0.2-1.2); Calc. Creatinine Clearance 0 mL/min (70-130); Calcium 9.2 mg/dL (7.8-10.44); Carbon Dioxide 25 mmol/L (22-29); Chloride 103 mmol/L (98-107); Glucose 98 mg/dL (70-105); Lipase 7 U/L (8-78); Potassium 4.2 mmol/L (3.5-5.1); Protein, Total 8.1 g/dL (6.0-8.3); Sodium 135 mmol/L (136-145)
== END 2020-07-15 10:21 | disposition home or self-care (01) ==
LOC: ERS 07:51
DX: K21.9 Gastro-esophageal reflux disease without esophagitis (principal); K80.20 Calculus of gallbladder without cholecystitis without obstruction
CPT/HCPCS: 76705; 80053; 81003; 81015; 81025; 83690; 85025; 96374; J2405

== ENCOUNTER 2021-03-25 05:10 | Inpatient (IN) | payer OTHER ==
[2021-03-25] MEDS ORDERED: Ondansetron PF 4 MG/2 ML Vial ONE ×2 (05:55→14:40)
[2021-03-25] MEDS ORDERED: Milk Of Magnesia 30 ML UDCUP ONE ×2 (05:55→05:57)
[2021-03-25] MEDS ORDERED: Lidocaine Viscous Sol 2% 15 ml UD Cup ONE (05:56)
[2021-03-25] MEDS ORDERED: Mag-Al 1200 mg/1200 mg/30 ML UDCUP ONE (05:56)
[2021-03-25 06:23] LABS: #Basophils 0.1 thou/uL (0.0-0.2); #Eosinphils 0.1 thou/uL (0.0-0.7); #Lymphocytes 2.1 thou/uL (1.20-3.40); #Monocytes 0.4 thou/uL (0.11-0.59); #Neutrophils 2.3 thou/uL (1.40-6.50); %Basophils 1.1 % (0.0-1.0); %Monocytes 8.3 % (0.0-10.0); %Neutrophils 46.5 % (42.0-75.0); Hemoglobin 13.3 g/dL (12.0-16.0); Mean Corpuscular HGB CONC 33.1 g/dL (32.0-36.0); Mean Corpuscular Hemoglobin 30.7 pg (27.0-31.0); Mean Corpuscular Volume 92.7 fL (78.0-98.0); Mean Platelet Volume 6.1 fL (7.4-10.4); Platelet Count 421 thou/uL (130-400); RBC Distribution Width 11.4 % (11.5-14.5); Red Blood Cell (RBC) Count 4.34 mill/uL (4.20-5.40)
[2021-03-25 06:33] LABS: BHCG - Serum Negative (NEGATIVE); Pregs Control Background? CLEAR/WHITE (CLR/WHITE); Pregs Control Bar Appear? YES (CONTROL BAR)
[2021-03-25 06:41] LABS: ALT (SGPT) 751 U/L (8-55); AST (SGOT) 725 U/L (5-34); Albumin 4.4 g/dL (3.5-5.0); Alkaline Phosphatase 101 U/L (40-110); Anion Gap 11 mmol/L (10-20); BUN (Urea Nitrogen) 6 mg/dL (7.0-18.7); Bilirubin, Total 2.5 mg/dL (0.2-1.2); Calc. Creatinine Clearance 0 mL/min (70-130); Calcium 10.1 mg/dL (7.8-10.44); Carbon Dioxide 28 mmol/L (22-29); Chloride 101 mmol/L (98-107); Globulin 4.1 g/dL (2.4-3.5); Glucose 103 mg/dL (70-105); Lipase 13 U/L (8-78); Potassium 3.7 mmol/L (3.5-5.1); Protein, Total 8.5 g/dL (6.0-8.3); Sodium 136 mmol/L (136-145)
[2021-03-25] MEDS ORDERED: Piperacillin/Tazobactam 3.375 GM VIAL ONE (06:54)
[2021-03-25 07:13] LABS: Bilirubin 1+ (Negative); Blood, Urine Negative (Negative); Clarity Clear (Clear); Glucose, Urine (Dipstick) Normal (Negative); Ketone, Urine Negative (Negative); Leukocyte Negative Leu/uL (Negative); Nitrite Negative (Negative); Protein, Urine (Dipstick) 20 mg/dL (Neg-Trace); Specific Gravity, Urine 1.027 (1.002-1.036)
[2021-03-25] MEDS ORDERED: Morphine 4 MG/ML VIAL SLOW IVP PRN (08:23)
[2021-03-25 10:32] VITALS: BMI 31.4
[2021-03-25 11:37] LABS: SARS-CoV-2 NAA Rapid Test Not Detected (NotDetected)
[2021-03-25] MEDS ORDERED: Midazolam HCl 2 mg/2 ml Vial ONE (12:10)
[2021-03-25] MEDS ORDERED: Fentanyl 100 MCG/2 ML VIAL ONE ×2 (12:10→14:30)
[2021-03-25] MEDS: Famotidine/PF 20 mg/2ml Vial SLOW IVP SCH ×2 (12:15→20:40)
[2021-03-25] MEDS ORDERED: Lidocaine 1% w/Epinephrine 1:100K 20 ML VIAL ONE (12:26)
[2021-03-25] MEDS ORDERED: Bupivacaine PF 0.5% 30 ML VIAL ONE (12:26)
[2021-03-25] MEDS ORDERED: Bupivacaine 0.25% 10 ML VIAL ONE ×2 (12:26)
[2021-03-25] MEDS ORDERED: Iothalamate Meglumine 60% 50 ML VIAL FS ONE ×2 (12:36→14:19)
[2021-03-25] MEDS ORDERED: Lidocaine 1% PF 5 ML VIAL ONE (13:08)
[2021-03-25] MEDS ORDERED: Dexamethasone 20 MG/5 ML VIAL ONE (13:08)
[2021-03-25] MEDS ORDERED: PROPOFOL 200 MG/20 ML VIAL ONE (13:08)
[2021-03-25] MEDS ORDERED: Rocuronium Bromide 10 MG/ML (10ML VIAL) ONE ×2 (13:08→14:40)
[2021-03-25] MEDS ORDERED: Indomethacin 50 MG SUPP ONE (14:19)
[2021-03-25] MEDS ORDERED: SUGAMMADEX SODIUM 200 MG/2 ML VIAL ONE (14:30)
[2021-03-25] MEDS ORDERED: Glycopyrrolate 0.2 MG/ML 5 ML SYRINGE ONE (14:40)
[2021-03-25] MEDS ORDERED: Esmolol 100 MG/10 ML VIAL ONE (14:40)
[2021-03-25] MEDS ORDERED: Ketorolac Tromethamine 30 MG/ML VIAL ONE (14:40)
[2021-03-25] MEDS: Piperacillin/Tazobactam 3.375 GM in Sodium Chloride 0.9% 100 ML IVPB SCH ×2 (15:37→18:18)
[2021-03-25] MEDS: Ondansetron PF 4 MG/2 ML Vial IVP PRN (17:10)
[2021-03-25] MEDS: Morphine 4 MG/ML VIAL SLOW IVP PRN (20:40)
[2021-03-26] MEDS: Piperacillin/Tazobactam 3.375 GM in Sodium Chloride 0.9% 100 ML IVPB SCH ×3 (03:21→18:53)
[2021-03-26 05:34] LABS: #Lymphocytes 1.1 thou/uL (1.20-3.40); #Monocytes 0.4 thou/uL (0.11-0.59); #Neutrophils 10.6 thou/uL (1.40-6.50); %Lymphocytes 9.3 % (21.0-51.0); %Monocytes 3.4 % (0.0-10.0); %Neutrophils 87.2 % (42.0-75.0); Hemoglobin 11.8 g/dL (12.0-16.0); Mean Corpuscular HGB CONC 33.1 g/dL (32.0-36.0); Mean Corpuscular Hemoglobin 31.1 pg (27.0-31.0); Mean Corpuscular Volume 93.9 fL (78.0-98.0); Mean Platelet Volume 6.1 fL (7.4-10.4); Platelet Count 365 thou/uL (130-400); RBC Distribution Width 11.4 % (11.5-14.5); Red Blood Cell (RBC) Count 3.79 mill/uL (4.20-5.40); White Blood Cell (WBC) Count 12.1 thou/uL (4.8-10.8)
[2021-03-26 05:57] LABS: ALT (SGPT) 533 U/L (8-55); AST (SGOT) 227 U/L (5-34); Albumin 3.9 g/dL (3.5-5.0); Alkaline Phosphatase 115 U/L (40-110); Anion Gap 12 mmol/L (10-20); BUN (Urea Nitrogen) 4 mg/dL (7.0-18.7); Bilirubin, Total 2.1 mg/dL (0.2-1.2); Calc. Creatinine Clearance 139 mL/min (70-130); Calcium 9.1 mg/dL (7.8-10.44); Carbon Dioxide 22 mmol/L (22-29); Chloride 104 mmol/L (98-107); Globulin 3.8 g/dL (2.4-3.5); Glucose 153 mg/dL (70-105); Lipase 48 U/L (8-78); Potassium 3.9 mmol/L (3.5-5.1); Protein, Total 7.7 g/dL (6.0-8.3); Sodium 134 mmol/L (136-145)
[2021-03-26] MEDS: Ondansetron PF 4 MG/2 ML Vial IVP PRN ×2 (06:50→20:50)
[2021-03-26] MEDS: Morphine 4 MG/ML VIAL SLOW IVP PRN (10:03)
[2021-03-26] MEDS: Famotidine/PF 20 mg/2ml Vial SLOW IVP SCH ×2 (10:04→20:54)
[2021-03-26] MEDS ORDERED: HYDROcodone/Acetaminophen 5/325 mg Tablet PO PRN (12:00)
[2021-03-26] MEDS ORDERED: traMADol HCl 50 MG TAB PO PRN ×2 (12:00)
[2021-03-26] MEDS ORDERED: Acetaminophen 325 MG TAB PO PRN ×2 (12:01)
[2021-03-26] MEDS ORDERED: Promethazine 25 MG TAB PO PRN (12:02)
[2021-03-26] MEDS: Sodium Chloride 0.9% 1,000 ML IV SCH (18:53)
[2021-03-27] MEDS: Piperacillin/Tazobactam 3.375 GM in Sodium Chloride 0.9% 100 ML IVPB SCH ×3 (03:22→19:28)
[2021-03-27 05:38] LABS: #Basophils 0.1 thou/uL (0.0-0.2); #Lymphocytes 4.5 thou/uL (1.20-3.40); #Monocytes 0.6 thou/uL (0.11-0.59); #Neutrophils 4.7 thou/uL (1.40-6.50); %Basophils 0.6 % (0.0-1.0); %Eosinophils 0.3 % (0.0-10.0); %Lymphocytes 45.7 % (21.0-51.0); %Monocytes 5.8 % (0.0-10.0); %Neutrophils 47.6 % (42.0-75.0); Hemoglobin 10.5 g/dL (12.0-16.0); Mean Corpuscular HGB CONC 33.8 g/dL (32.0-36.0); Mean Corpuscular Hemoglobin 31.4 pg (27.0-31.0); Mean Corpuscular Volume 93.1 fL (78.0-98.0); Platelet Count 324 thou/uL (130-400); RBC Distribution Width 11.5 % (11.5-14.5); Red Blood Cell (RBC) Count 3.35 mill/uL (4.20-5.40); White Blood Cell (WBC) Count 9.8 thou/uL (4.8-10.8)
[2021-03-27 06:02] LABS: ALT (SGPT) 365 U/L (8-55); AST (SGOT) 101 U/L (5-34); Albumin 3.5 g/dL (3.5-5.0); Alkaline Phosphatase 91 U/L (40-110); Anion Gap 9 mmol/L (10-20); BUN (Urea Nitrogen) 4 mg/dL (7.0-18.7); Bilirubin, Total 0.7 mg/dL (0.2-1.2); Calc. Creatinine Clearance 158 mL/min (70-130); Calcium 8.5 mg/dL (7.8-10.44); Carbon Dioxide 25 mmol/L (22-29); Chloride 104 mmol/L (98-107); Globulin 3.2 g/dL (2.4-3.5); Glucose 87 mg/dL (70-105); Potassium 3.4 mmol/L (3.5-5.1); Protein, Total 6.7 g/dL (6.0-8.3); Sodium 135 mmol/L (136-145)
[2021-03-27] MEDS: Sodium Chloride 0.9% 1,000 ML IV SCH (06:33)
[2021-03-27] MEDS: Famotidine/PF 20 mg/2ml Vial SLOW IVP SCH (09:48)
[2021-03-27 16:43] VITALS: BP 114/75; TEMP 98.5
== END 2021-03-27 19:13 | disposition home or self-care (01) | DRG 419 ==
LOC: ERS 05:10 → SURG B 07:23 → OBSVTOIN 03-26 20:14
PROVIDERS: ADMIT Surgery; ATTEND Surgery
PROC: 0FT44ZZ Resection of Gallbladder, Percutaneous Endoscopic Approach (ICD-10-PCS; principal; 2021-03-25)
PROC: BF131ZZ Fluoroscopy of Gallbladder and Bile Ducts using Low Osmolar Contrast (ICD-10-PCS; 2021-03-25)
PROC: 0FC98ZZ Extirpation of Matter from Common Bile Duct, Via Natural or Artificial Opening Endoscopic (ICD-10-PCS; 2021-03-25)
DX: K80.61 Calculus of gallbladder and bile duct with cholecystitis, unspecified, with obstruction (principal); Z20.822 Contact with and (suspected) exposure to COVID-19; K21.9 Gastro-esophageal reflux disease without esophagitis; K66.0 Peritoneal adhesions (postprocedural) (postinfection); Z79.899 Other long term (current) drug therapy
CPT/HCPCS: 36415; 47532; 71045; 76000; 76705; 80053; 81003; 83690; 84703; 85025; 87086; 88304; 96365; 96375; 96376; C1713; G0378; J1100; J1610; J1885; J2250; J2270; J2405; J2543; J2704; J3010; J3490; J7050; Q9961-U8; S0020; S0028; U0002

== ENCOUNTER 2022-07-15 20:45 | Emergency (ER) | payer OTHER ==
[2022-07-15] MEDS ORDERED: Ketorolac Tromethamine 30 MG/ML VIAL ONE (21:52)
== END 2022-07-15 22:15 | disposition home or self-care (01) ==
LOC: ERS 20:45
DX: M25.512 Pain in left shoulder (principal); X50.0XXA Overexertion from strenuous movement or load, initial encounter
CPT/HCPCS: 96372; J1885

== ENCOUNTER 2023-05-22 20:53 | Observation (INO) | payer BC, OTHER, SELFPAY ==
[2023-05-22] MEDS ORDERED: Activated Charcoal/Sorbitol 25 GM/120 ML TUBE ONE (21:14)
[2023-05-22 21:23] LABS: #Monocytes 0.7 thou/uL (0.11-0.59); #Neutrophils 9.9 thou/uL (1.40-6.50); %Basophils 0.2 % (0.0-1.0); %Eosinophils 0.1 % (0.0-10.0); %Lymphocytes 17.8 % (21.0-51.0); %Monocytes 5.5 % (0.0-10.0); %Neutrophils 76.2 % (42.0-75.0); Hemoglobin 12.2 g/dL (12.0-16.0); Mean Corpuscular HGB CONC 33.9 g/dL (32.0-36.0); Mean Corpuscular Hemoglobin 29.9 pg (27.0-31.0); Mean Corpuscular Volume 88.2 fl (78.0-98.0); Mean Platelet Volume 8.6 fL (7.4-10.4); Platelet Count 381 10x3/uL (130-400); RBC Distribution Width 11.9 % (11.5-14.5); Red Blood Cell (RBC) Count 4.08 mill/uL (4.20-5.40); White Blood Cell (WBC) Count 12.9 10x3/uL (4.8-10.8)
[2023-05-22 21:47] LABS: Acetaminophen Less than 10 mcg/mL (10.0-30.0); Alcohol Less than 10.0 mg/dL (Less than 10); Salicylate Less than 8.0 mg/dL (15.0-30.0)
[2023-05-22 21:50] LABS: Troponin I Less than 0.010 ng/mL (< 0.028)
[2023-05-22 22:14] LABS: ALT (SGPT) 20 U/L (8-55); AST (SGOT) 20 U/L (5-34); Albumin 4.7 g/dL (3.5-5.0); Alkaline Phosphatase 71 U/L (40-110); Anion Gap 16 mmol/L (10-20); BUN (Urea Nitrogen) 14 mg/dL (7.0-18.7); Bilirubin, Total 0.4 mg/dL (0.2-1.2); Calc. Creatinine Clearance 0 mL/min (70-130); Calcium 9.9 mg/dL (7.8-10.44); Carbon Dioxide 20 mmol/L (22-29); Chloride 105 mmol/L (98-107); Estimated GFR 89; Globulin 3.7 g/dL (2.4-3.5); Glucose 92 mg/dL (70-105); Potassium 3.8 mmol/L (3.5-5.1); Protein, Total 8.4 g/dL (6.0-8.3); Sodium 137 mmol/L (136-145)
[2023-05-23 01:58] LABS: Bacteria/HPF None Seen HPF (None Seen); Bilirubin Negative (Negative); Blood, Urine Negative (Negative); CAUTI Indications for Culture Alt mental st,lethar; Clarity Clear (Clear); Glucose, Urine (Dipstick) Normal (Negative); Ketone, Urine Negative (Negative); Leukocyte Negative Leu/uL (Negative); Mucous/LPF Rare LPF (<2+); Nitrite Negative (Negative); Protein, Urine (Dipstick) 10 mg/dL (Neg-Trace); RBC/HPF 0-3 HPF (0-3); Specific Gravity, Urine 1.025 (1.002-1.036); Squamous Epithelial 0-3 HPF (0-3); Urobilinogen Normal mg/dL (Less than 2); pH, Urine 5.5 (5.0-9.0)
[2023-05-23 01:59] LABS: Pregnancy Test - Urine (BHCG) Negative (Negative); Pregu Control Background? CLEAR/WHITE (CLR/WHITE); Pregu Control Bar Appear? YES (CONTROL BAR); Specific Gravity 1.025 (1.002-1.036); Urine Culture Reflex No No
[2023-05-23 02:03] LABS: Acetaminophen Less than 10 mcg/mL (10.0-30.0); Alcohol Less than 10.0 mg/dL (Less than 10); Salicylate Less than 8.0 mg/dL (15.0-30.0)
[2023-05-23 02:06] LABS: Amphetamine Not Detected (NotDetected); Barbiturates Screen Not Detected (NotDetected); Benzodiazepine Screen Not Detected (NotDetected); Cocaine Metabolite Screen Not Detected (NotDetected); Methadone Not Detected (NotDetected); Methamphetamine Not Detected (NotDetected); Opiate Screen Not Detected (NotDetected); Oxycodone Screen Not Detected (NotDetected); Phencyclidine (PCP) Not Detected (NotDetected); THC/Cannabinoid Screen Not Detected (NotDetected); Tricyclic Screen Not Detected (NotDetected)
[2023-05-23 08:47] LABS: Hematocrit 33.5 % (36.0-47.0); Manual Diff?? YES; Mean Corpuscular HGB CONC 32.8 g/dL (32.0-36.0); Mean Platelet Volume 8.3 fL (7.4-10.4); Platelet Count 319 10x3/uL (130-400); RBC Distribution Width 11.9 % (11.5-14.5); Red Blood Cell (RBC) Count 3.67 mill/uL (4.20-5.40)
[2023-05-23 08:52] LABS: Delete Auto Diff?? YES; Mean Corpuscular Volume 91.3 fl (78.0-98.0)
[2023-05-23] MEDS: Sodium Chloride 0.9% 1,000 ML IV SCH (08:59)
[2023-05-23 09:15] LABS: ALT (SGPT) 19 U/L (8-55); AST (SGOT) 31 U/L (5-34); Acetaminophen Less than 10 mcg/mL (10.0-30.0); Albumin 3.7 g/dL (3.5-5.0); Alkaline Phosphatase 58 U/L (40-110); Anion Gap 10 mmol/L (10-20); BUN (Urea Nitrogen) 8 mg/dL (7.0-18.7); Bilirubin, Total 0.5 mg/dL (0.2-1.2); CK (CPK) 1989 U/L (29-168); Calc. Creatinine Clearance 164 mL/min (70-130); Calcium 8.7 mg/dL (7.8-10.44); Carbon Dioxide 22 mmol/L (22-29); Chloride 109 mmol/L (98-107); Estimated GFR 120; Globulin 3.1 g/dL (2.4-3.5); Glucose 84 mg/dL (70-105); Potassium 3.7 mmol/L (3.5-5.1); Protein, Total 6.8 g/dL (6.0-8.3); Sodium 137 mmol/L (136-145)
[2023-05-23 09:48] LABS: CellaVision Operator ID LAB.KW3; Eosinophils 1 % (0-10); Lymphocytes 41 % (21-51); Monocytes 3 % (0-10); Neutrophil 54 % (42-75); Platelet Adequacy Comment Platelets Normal; RBC Morphology Within Normal Limits; Reactive Lymphocytes 1 % (0-10); Total Cell Count 101
[2023-05-23] MEDS: Ibuprofen 200 MG TAB PO PRN (11:45)
[2023-05-23 21:24] LABS: Acetaminophen Less than 10 mcg/mL (10.0-30.0); Anion Gap 11 mmol/L (10-20); BUN (Urea Nitrogen) 11 mg/dL (7.0-18.7); CK (CPK) 1932 U/L (29-168); Calc. Creatinine Clearance 151 mL/min (70-130); Calcium 8.3 mg/dL (7.8-10.44); Carbon Dioxide 21 mmol/L (22-29); Chloride 108 mmol/L (98-107); Estimated GFR 109; Glucose 102 mg/dL (70-105); Potassium 3.4 mmol/L (3.5-5.1); Sodium 137 mmol/L (136-145)
[2023-05-24 08:26] LABS: ALT (SGPT) 20 U/L (8-55); AST (SGOT) 32 U/L (5-34); Albumin 3.5 g/dL (3.5-5.0); Alkaline Phosphatase 57 U/L (40-110); Anion Gap 9 mmol/L (10-20); BUN (Urea Nitrogen) 9 mg/dL (7.0-18.7); Bilirubin, Total 0.3 mg/dL (0.2-1.2); CK (CPK) 1646 U/L (29-168); Calc. Creatinine Clearance 174 mL/min (70-130); Calcium 8.5 mg/dL (7.8-10.44); Carbon Dioxide 25 mmol/L (22-29); Chloride 107 mmol/L (98-107); Estimated GFR 122; Globulin 3.1 g/dL (2.4-3.5); Glucose 90 mg/dL (70-105); Potassium 3.5 mmol/L (3.5-5.1); Protein, Total 6.6 g/dL (6.0-8.3); Sodium 137 mmol/L (136-145)
[2023-05-24] MEDS ORDERED: FLU VACC QS2023-24(6MOS UP)/PF 60 MCG/0.5 ML SYRINGE IM ONE (09:00)
[2023-05-24 09:50] LABS: Acetaminophen Less than 10 mcg/mL (10.0-30.0)
[2023-05-24 11:56] VITALS: TEMP 97.8
[2023-05-24 15:43] VITALS: BP 96/60
== END 2023-05-24 17:14 | disposition home or self-care (01) ==
LOC: ERS 20:53 → ERHOLD 05-23 02:56 → 2SE 05-23 03:12
PROVIDERS: ADMIT Internal Medicine; ATTEND Nurse Practitioner Acute Care
DX: T39.1X2A Poisoning by 4-Aminophenol derivatives, intentional self-harm, initial encounter (principal); T45.0X2A Poisoning by antiallergic and antiemetic drugs, intentional self-harm, initial encounter; R22.0 Localized swelling, mass and lump, head; R41.82 Altered mental status, unspecified; M62.82 Rhabdomyolysis; Z91.51 Personal history of suicidal behavior; Z90.49 Acquired absence of other specified parts of digestive tract
CPT/HCPCS: 36415; 70450; 70486; 71045; 72125; 80053; 80143; 80306; 80307; 81001; 81025; 82550; 84484; 84702; 85025; 93005; G0378; J7050

== ENCOUNTER 2023-09-13 13:30 | Emergency (ER) | payer BC, SELFPAY ==
[2023-09-13 13:53] LABS: #Basophils Less than 0.03 10x3/uL (0.0-0.2); %Basophils 0.3 % (0.0-1.0); %Lymphocytes 21.7 % (21.0-51.0); %Monocytes 9.1 % (0.0-10.0); %Neutrophils 67.5 % (42.0-75.0); Hematocrit 38.2 % (36.0-47.0); Hemoglobin 12.8 g/dL (12.0-16.0); Mean Corpuscular HGB CONC 33.5 g/dL (32.0-36.0); Mean Corpuscular Volume 89.7 fL (78.0-98.0); Mean Platelet Volume 8.4 fL (7.4-10.4); Platelet Count 349 10x3/uL (130-400); Red Blood Cell (RBC) Count 4.26 mill/uL (4.20-5.40)
[2023-09-13 14:12] LABS: Bacteria/HPF None Seen HPF (None Seen); Bilirubin Negative (Negative); Blood, Urine Negative (Negative); CAUTI Indications for Culture Fever or rigors; Clarity Clear (Clear); Glucose, Urine (Dipstick) Normal (Negative); Ketone, Urine Negative (Negative); Leukocyte Negative Leu/uL (Negative); Nitrite Negative (Negative); Protein, Urine (Dipstick) 30 mg/dL (Neg-Trace); RBC/HPF 0-3 HPF (0-3); Specific Gravity, Urine 1.037 (1.002-1.036); Urobilinogen 3 mg/dL (Less than 2); WBC/HPF 0-3 HPF (0-3)
[2023-09-13 14:18] LABS: ALT (SGPT) 20 U/L (8-55); AST (SGOT) 18 U/L (5-34); Alkaline Phosphatase 72 U/L (40-110); Anion Gap 11 mmol/L (10-20); BUN (Urea Nitrogen) 12 mg/dL (7.0-18.7); Bilirubin, Total 0.5 mg/dL (0.2-1.2); Calc. Creatinine Clearance 0 mL/min (70-130); Calcium 9.2 mg/dL (7.8-10.44); Carbon Dioxide 23 mmol/L (22-29); Chloride 105 mmol/L (98-107); Estimated GFR 114; Globulin 4.2 g/dL (2.4-3.5); Glucose 93 mg/dL (70-105); Lipase 13 U/L (8-78); Potassium 3.8 mmol/L (3.5-5.1); Protein, Total 8.2 g/dL (6.0-8.3); Sodium 135 mmol/L (136-145)
[2023-09-13 14:21] LABS: Influenza A by NAA Not Detected (NotDetected); Influenza B by NAA Not Detected (NotDetected); SARS-CoV-2 NAA Rapid Test Not Detected (NotDetected)
[2023-09-13 14:21] LABS: Pregnancy Test - Urine (BHCG) Negative (Negative); Pregu Control Background? CLEAR/WHITE (CLR/WHITE); Pregu Control Bar Appear? YES (CONTROL BAR); Specific Gravity 1.037 (1.002-1.036)
[2023-09-13 14:22] LABS: Urine Culture Reflex No No
== END 2023-09-13 15:36 | disposition home or self-care (01) ==
LOC: ERS 13:30
DX: A05.9 Bacterial foodborne intoxication, unspecified (principal)
CPT/HCPCS: 80053; 81001; 81025; 83690; 85025; 99284